=== PATIENT | male | born 1965 | race Caucasian/White ===

== ENCOUNTER 2017-01-13 09:53 | Outpatient (CLI) | payer BC ==
--- NOTE | 2017-01-13 13:20 | MRI ---
BRAIN MRI WITH AND WITHOUT CONTRAST: Date: 01/13/17 COMPARISON: 08/27/16 and prior. HISTORY: Malignant neoplasm of brain. Follow-up examination to reassess brain tumor. TECHNIQUE: Multiplanar, multisequence MR imaging of the brain is provided with and without contrast. FINDINGS: The diffusion-weighted imaging demonstrates no evidence for acute infarction. There is a stable small left parietal calvarial defect suggesting the sequelae of prior brain biopsy . The gradient echo imaging demonstrates no evidence for acute hemorrhage. There is no ventriculomeg rylee. There is a T1 hypointense and T2/FLAIR hyperintense intra-axial mass lesion on the left. This lesion involves the thalamus on the left, especially dorsally, as well as the periventricular and deep whi te matter adjacent to the mid/posterior body of the left lateral ventricle. The lesion extends infer iorly into the periventricular white matter anterior to the atrium of the lateral ventricle on the l eft. There is abnormal signal which involves the periventricular white matter medial to the left fro ntal horn of the lateral ventricle. There is increased T2 and FLAIR signal involving the periventricular white matter adjacent to the oc cipital horn and lateral to the atrium of the left lateral ventricle. The extent of signal abnormali ty associated with this intracranial intra-axial mass lesion does not appear significantly changed w hen compared to the 08/27/16 exam. The degree of mass effect with left to right midline shift at the level of the septum pellucidum posteriorly is grossly unchanged, measuring in the 5.0 mm range. The postcontrast imaging does not demonstrate significant enhancement of this lesion, making it diff icult to define which areas of signal abnormality are associated with tumor and the areas which are associated with vasogenic edema. The most conspicuous focal area of signal abnormality centered in t he region of the thalamus on the left measures approximately 3.0 x 2.9 cm in the region of the dorsa l thalamus, unchanged when compared to the 08/27/16 exam. In addition, when measuring the area of fo candis signal abnormality adjacent to the septum pellucidum on the left, this region of signal abnormal ity measures up to 2.7 cm in greatest transverse dimension, unchanged since 08/27/16. When compared to the 04/29/16 exam, there has been no significant change either. The imaged paranasal sinuses/mastoid air cells are well aerated. Arterial flow-voids at the axial le anjelica of the skull base appear unremarkable on the T2-weighted imaging. 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 POS: [facility]
== END 2017-01-13 09:54 | disposition home or self-care (01) ==
LOC: TBSIIMAG 09:53
PROVIDERS: ATTEND Neurological Surgery
DX: C71.9 Malignant neoplasm of brain, unspecified (principal)
CPT/HCPCS: 70553

== ENCOUNTER 2017-04-20 18:10 | Inpatient (IN) | payer BC ==
[2017-04-20 20:16] LABS: Bilirubin Small (Negative); Blood, Urine Trace (Negative); Clarity Hazy (Clear); Glucose, Urine (Dipstick) Negative (Negative); Leukocyte Negative (Negative); Nitrite Negative (Negative); Protein, Urine (Dipstick) 100 mg/dL (Neg-Trace); Specific Gravity, Urine 1.025 (1.005-1.030); Urobilinogen 0.2 mg/dL (0.2-1.0)
[2017-04-20 20:18] LABS: Bacteria/HPF 3+ HPF (None Seen); RBC/HPF 0-3 HPF (0-3); Squamous Epithelial 0-3 HPF (0-3); WBC/HPF 0-3 HPF (0-3)
[2017-04-20 20:19] LABS: Hyaline Casts/LPF 0-3 HYALINE CAST LPF (0-3 Hyaline)
[2017-04-20 20:25] LABS: Phencyclidine (PCP) Not Detected (NotDetected); THC/Cannabinoid Screen Not Detected (NotDetected)
[2017-04-20 20:26] LABS: Amphetamine Detected (NotDetected); Barbiturates Screen Not Detected (NotDetected); Benzodiazepine Screen Not Detected (NotDetected); Cocaine Metabolite Screen Not Detected (NotDetected); Medtox Control Line Valid? VALID (VALID); Methadone Not Detected (NotDetected); Methamphetamine Not Detected (NotDetected); Opiate Screen Not Detected (NotDetected); Oxycodone Screen Not Detected (NotDetected); Tricyclic Screen Not Detected (NotDetected)
[2017-04-20 20:34] LABS: #Basophils 0.2 thou/uL (0.0-0.2); #Lymphocytes 1.5 thou/uL (1.20-3.40); #Monocytes 0.8 thou/uL (0.11-0.59); #Neutrophils 11.2 thou/uL (1.40-6.50); %Basophils 1.2 % (0.0-1.0); %Eosinophils 0.1 % (0.0-10.0); %Lymphocytes 11.1 % (21.0-51.0); %Neutrophils 81.6 % (42.0-75.0); Hemoglobin 11.9 g/dL (14.0-18.0); Mean Corpuscular HGB CONC 35.4 g/dL (32.0-36.0); Mean Corpuscular Hemoglobin 31.9 pg (27.0-31.0); Mean Corpuscular Volume 90.1 fl (80.0-94.0); Mean Platelet Volume 6.9 fL (7.4-10.4); Platelet Count 321 thou/uL (130-400); RBC Distribution Width 11.5 % (11.5-14.5); Red Blood Cell (RBC) Count 3.74 mill/uL (4.70-6.10); White Blood Cell (WBC) Count 13.7 thou/uL (4.8-10.8)
[2017-04-20 20:39] LABS: INR-International Normal Ratio 0.9; Prothrombin Time 12.6 SEC (12.0-14.7)
[2017-04-20 20:50] LABS: ALT (SGPT) 27 U/L (8-55); AST (SGOT) 23 U/L (5-34); Acetaminophen Less than 6.0 mcg/mL (10.0-30.0); Albumin 4.5 g/dL (3.5-5.0); Alcohol Less than 10 mg/dL (Less than 10); Alkaline Phosphatase 134 U/L (40-150); Anion Gap 18 mmol/L (10-20); BUN (Urea Nitrogen) 34 mg/dL (8.4-25.7); Bilirubin, Total 0.3 mg/dL (0.2-1.2); CK (CPK) 287 U/L (30-200); CKMB 4.8 ng/mL (0-6.6); Calc. Creatinine Clearance 0 mL/min (70-130); Calcium 10.1 mg/dL (7.8-10.44); Carbon Dioxide 24 mmol/L (22-29); Chloride 100 mmol/L (98-107); Estimated GFR-MDRD 25; Globulin 3.3 g/dL (2.4-3.5); Glucose 116 mg/dL (70-105); Potassium 4.2 mmol/L (3.5-5.1); Protein, Total 7.8 g/dL (6.0-8.3); Salicylate Less than 8.0 mg/dL (15.0-30.0); Sodium 138 mmol/L (136-145); Troponin I 0.013 ng/mL (< 0.028)
--- NOTE | 2017-04-20 20:51 | CT ---
CT OF BRAIN PERFORMED WITHOUT CONTRAST ENHANCEMENT: History: Altered mental status. History of brain tumor. Comparison: 04-08-15 CT examination, 01-13-17 MRI study. FINDINGS: There is evidence for increase in size of the brain mass as compared to the prior examination. There is increased white matter edema change in the left frontal lobe region and there is marked effacement of the left frontal horn with mixed low attenuation change extending across midline in the region of the frontal horns and anterior aspect of the corpus callosum region suggesting tumor extension. Ther e is fairly minimal shift of midline structures to the right. There is no hemorrhage. IMPRESSION: Findings compatible with enlarging intraxial mass, which had its epicenter before in the left thalamu s region but now shows findings that would suggest that it is crossing midline anteriorly and there i s increasing edema change within the white matter in the left frontal lobe. POS: [facility]
[2017-04-20] MEDS ORDERED: cefTRIAXone\\ROCEPHIN 1 GM VIAL ONE (21:41)
[2017-04-20] MEDS ORDERED: Sodium Chloride 0.9% 100 ML ONE (21:42)
[2017-04-20] MEDS ORDERED: Dexamethasone 4 MG TAB ONE (22:39)
[2017-04-21 01:32] VITALS: BMI 35.6
[2017-04-21] MEDS ORDERED: FLU VACC TS2017-18 (>65YR) 0.5 ML SYRINGE IM ONE (01:45)
[2017-04-21] MEDS ORDERED: Prevnar 13-Val Conj/PF 0.5 ML SYRINGE IM ONE (01:45)
[2017-04-21] MEDS: Dexamethasone 4 mg/ml Vial SLOW IVP SCH ×4 (01:51→18:10)
[2017-04-21] MEDS ORDERED: Ondansetron HCl/PF 4 MG/2 ML Vial IVP PRN (03:07)
[2017-04-21] MEDS ORDERED: Ondansetron ODT 4 MG TAB PO PRN (03:07)
[2017-04-21] MEDS: Sodium Chloride 0.9% 1,000 ML IV SCH ×2 (04:00→12:13)
--- NOTE | 2017-04-21 04:37 | HP ---
DATE OF ADMISSION: 04/21/2017 CHIEF COMPLAINT: Suicidal ingestion of SSRIs. HISTORY OF PRESENT ILLNESS: This is a 51-year-old young white male who was diagnosed enlarging brain mass by Neurology, has been treated with radiation and chemotherapy. Patient was found to be having persistent aphasia and dysphagia as told by the . The patient was advised to go to the ER. Dur ing this period, patient took unknown quantity of sertraline, Adderall, lisinopril, and couple of oth er medications. As patient immediately vomited these medications soon as he took it, as he was very confused, so he was taken to the [place] ER at the [facility], where the patient had a chest x-ray and thorough evaluation with lab work was done, which was unremarkable at that time and the pat ient was closely monitored. Neurosurgery was consulted because of the enlarging brain mass who sugge sted to start the patient on Decadron and admitted to the [facility]. Patient was seen in [facility], he was completely confused. He is disoriented to time, place, and person. He denies having any chest pain, no nausea, no vomiting, no diarrhea, no constipation, but patient is completely unaw are of the surroundings and he denies even ingesting any pills. PAST MEDICAL HISTORY: Unable to obtain. PAST SURGICAL HISTORY: Unable to obtain. SOCIAL HISTORY: Unable to obtain and no family members available. REVIEW OF SYSTEMS: Unable to obtain, as the patient is completely disoriented and no other family me mbers available at this time. HOME MEDICATIONS: Chlorthalidone 25 mg p.o. daily, levothyroxine 150 mg daily, lisinopril/hydrochlor othiazide p.o. daily, oxcarbazepine 300 mg p.o. b.i.d., sertraline 100 mg p.o. daily. ALLERGIES: FENTANYL. PHYSICAL EXAMINATION: VITAL SIGNS: Blood pressures are 124/82, heart rate is 97, respiration rate is 82, saturation is 88% . GENERAL: The patient is moderately built and moderately nourished, does not appear to be in acute di stress at this time. He is completely disoriented. HEENT: Atraumatic, normocephalic. PERRLA. Extraocular muscles were intact. CARDIOVASCULAR: S1, S2 normal. No murmurs, rubs, or gallops. LUNGS: Bilateral air entry was equal. No wheezing, no crackles. ABDOMEN: Soft, nontender. No guarding, no rebound tenderness. Bowel sounds normal. MUSCULOSKELETAL: No calf tenderness. No pedal edema. EXTREMITIES: No joint redness, no joint swelling. SKIN: No cyanosis or erythema, no rash, no pallor. NEUROLOGIC: Cranial nerve examination II-XII intact. No focal deficits were noted. LABORATORY DATA: WBC 13.7, hemoglobin is 11.1, hematocrit is 33.7, platelets are 321. Sodium is 138 , potassium 4.2, chloride is 100, bicarbonate 24, BUN is 34, creatinine is 2.69, blood sugar is 116. ASSESSMENT AND PLAN: 1. Acute encephalopathy secondary to brain mass. 2. Hypertension. 3. Severe depression. 4. Moderate dehydration. 5. Leukocytosis. PLAN: 1. Plan is to closely monitor this patient in the IMCU, because of the unknown side effects of the m edications. He took sertraline on unknown quantity of 100 mg tablets, but the history is patient has vomited out. So, we will closely monitor for any evidence of serotonin syndrome. So far the blood pressures remained stable and patient has no rigidity symptoms. 2. Neurosurgery has been consulted who planned to do an MRI of the brain with and without contrast a nd now suggested to continue on Decadron 4 mg q.6 hours. If the patient has risk of aspiration at t his time, patient has elevated white count, we will do a chest x-ray to look for any evidence of aspi ration pneumonia. We will keep the patient n.p.o. and do speech evaluation. 3. Patient has history of hypertension. We will hold off on the blood pressure medications and giancarlo t with p.r.n. hydralazine 10 mg q.6 hours. 4. As the patient has severe depression and is on sertraline, he is very unsafe, need possible psych evaluation following this discharge. 5. DVT prophylaxis. He is on Lovenox. I spent 70 minutes of this patient.
[2017-04-21 04:56] LABS: Band 5 % (5-11); Eosinophils 1 % (0-10); Hemoglobin 11.1 g/dL (14.0-18.0); Lymphocytes 10 % (21-51); MDiff Complete? YES; Mean Corpuscular HGB CONC 33.7 g/dL (32.0-36.0); Mean Corpuscular Hemoglobin 31.4 pg (27.0-31.0); Mean Corpuscular Volume 93.3 fl (80.0-94.0); Mean Platelet Volume 7.5 fL (7.4-10.4); Monocytes 8 % (0-10); Neutrophil 76 % (42-75); PLT Morphology Comment Appears Adequate; Platelet Count 311 thou/uL (130-400); RBC Distribution Width 12.1 % (11.5-14.5); Red Blood Cell (RBC) Count 3.53 mill/uL (4.70-6.10); White Blood Cell (WBC) Count 11.3 thou/uL (4.8-10.8)
[2017-04-21 05:06] LABS: ALT (SGPT) 23 U/L (8-55); AST (SGOT) 21 U/L (5-34); Albumin 4.1 g/dL (3.5-5.0); Alkaline Phosphatase 116 U/L (40-150); Anion Gap 13 mmol/L (10-20); BUN (Urea Nitrogen) 35 mg/dL (8.4-25.7); Bilirubin, Total 0.3 mg/dL (0.2-1.2); Calc. Creatinine Clearance 62 mL/min (70-130); Calcium 9.6 mg/dL (7.8-10.44); Carbon Dioxide 25 mmol/L (22-29); Chloride 101 mmol/L (98-107); Estimated GFR-MDRD 29; Globulin 2.8 g/dL (2.4-3.5); Glucose 99 mg/dL (70-105); Potassium 3.7 mmol/L (3.5-5.1); Protein, Total 6.9 g/dL (6.0-8.3); Sodium 135 mmol/L (136-145)
--- NOTE | 2017-04-21 05:57 | CON ---
DATE OF CONSULTATION: 04/20/2017 This is Angie Sorto PA-C, with Neurosurgery Service. ATTENDING PHYSICIAN: Dr. Mervin Cash. 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 He also appears to have overdosed on several of his regular medications including several blood pressure medications doxycycline and Vyvanse and Zoloft. Family and patient are unsure of how many medications that he took. He reports he is unsure why he took these medications when speaking with me, but told the ER physician here in the department that he was attempting to hurt himself after questioning several times. Regarding his past medical history of glioma, this has been found to be unresectable in nature involving the deep left hemisphere of thalamus. He has been followed with the regular imaging by Dr. Bailon and underwent sterotactic radiosurgery in 2013. His last visit with Dr. Bailon is slightly a smaller tumor and patient was doing well at that time. Today, CT head shows possible mild enlargement of the glioma when compared to MRI from 2017. There is minimal midline shift and no other significant changes. I am seeing the patient at bedside. He is A&O x4. Pupils are equal and reactive to light. He has normal cranial nerve exam. No focal neurologic deficits are appreciated on my exam, he has normal finger to nose. PAST MEDICAL HISTORY: Hypertension, hyperlipidemia, and depression. PAST SURGICAL HISTORY: Hernia repair, lumbar surgery, stereotactic radiosurgery. FAMILY HISTORY: Noncontributory. SOCIAL HISTORY: Patient does not smoke, drink, or use any drugs. ALLERGIES: Patient has no known drug allergies. PHYSICAL EXAMINATION: VITAL SIGNS: BP is 101/62, pulse is 70, respirations rate is 18, temperature is 98.3. The patient is 95% on room air. CONSTITUTIONAL: He is in no acute distress. HEENT: Normocephalic, atraumatic. Eyes: PERRLA. Extraocular movements intact. ENT: Oral mucosa is pink intact and moist. He has normal voice. NECK: Nontender to palpation. Free active range of motion, no meningismus or nuchal rigidity. CARDIOVASCULAR: Regular rate and rhythm. LUNGS: Patient is breathing comfortably, has symmetric chest expansion. No evidence of dyspnea. MUSCULOSKELETAL: He has good muscle tone in bilateral upper and lower extremities, no focal motor weakness is appreciated. NEURO: He is A&O x4. There is no focal neurologic deficits. He has normal cerebellar exam. Normal cranial nerve exam. PSYCHIATRIC: The patient is answering questions appropriately, although he does seem slightly evasive when discussing his recent medication overdose. He denies current SI or HI. ASSESSMENT AND PLAN: The patient is a 51-year-old male known to the Neurosurgery Service for unresectable glioma, which appears to be slightly enlarged when compared to his December MRI. He reports he has increased difficulty with word finding, which has been progressing over the last few weeks. There is also concern for overdose, which may have been intentional. He will be admitted to the medicine service regarding this issue. I will plan to repeat his MRI with and without contrast for further evaluation of this glioma. He will also be started on Decadron and an H2 molina. I will notify Dr. Bailon and MARGUERITE Greenwood regarding the patient's current status and admission to the hospital. Please reach out to Neurosurgery Service for additional questions or concerns. YENI
--- NOTE | 2017-04-21 07:53 | PRG ---
DATE OF SERVICE: 04/21/2017 SUBJECTIVE: I personally interviewed and examined Mr. Magana and agree with documentation of Nirav Glez PA-C, dated 04/20/2017. Briefly, Anthony Magana has been a patient in our neurosurgical clinic since 2013. 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 He has had adjuvant therapy. We followed him over time with serial imaging. 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 Most recently, I saw Mr. Magana in our neurosurgery clinic in December after MRI scan. He is due for another scan soon. With this history that he was found down at home with a 70 pill bottles he had a vomiting episode with stomach contents included multiple pills. He was brought to our emergency dep artment and overnight he has been watched in the ICU. He has not had any seizure activity and has no new neurological deficits overnight. On seeing him this morning, there is a bit of expressive dysphasia. He does get words out and 1 to 2 words answers or short phrases come out without difficulty. Compared to his baseline, he has overly upbeat affect. His affect is usually low and dominated by intellect rather than emotion. His behav ior now is a bit different when I compared to previous visits in our clinic. I do not find any cranial nerve deficit. I do not find any lateralizing motor or sensory deficits. We will await the MRI results from today. If there is new enhancement and the tumor has changed grad es, then he may be a candidate for a trial of therapy. If there is no new enhancement and the tumor is stable, this attempt to injure himself may prompt re-thinking of his management plan going forward . He may elect to be less or more aggressive with the tumor, but help in this management from Psychi mima would be beneficial. I will follow up with him and his after the MRI scan is done.
[2017-04-21] MEDS ORDERED: Enoxaparin Sodium 40 MG/0.4 ML SYRINGE SC SCH (09:00)
[2017-04-21] MEDS: Famotidine/PF 20 mg/2ml Vial SLOW IVP SCH (09:07)
--- NOTE | 2017-04-21 11:02 | RAD ---
PORTABLE UPRIGHT FRONTAL CHEST RADIOGRAPH: Date: 04-21-17 Comparison: None. 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 FINDINGS: Heart and mediastinal contours are grossly unremarkable. Mild interstitial prominence is noted. No fo candis consolidation. IMPRESSION: No acute findings. POS: [facility]
--- NOTE | 2017-04-21 16:04 | MRI ---
BRAIN MRI WITH AND WITHOUT CONTRAST 04/21/17 COMPARISON: 01/13/17. HISTORY: Brain tumor, status post chemotherapy and radiation. TECHNIQUE: Multiplanar and multisequence MR imaging of the brain is obtained with and without contrast. FINDINGS: The axial gradient echo imaging demonstrates no evidence for intracranial hemorrhage. The diffusion w eighted imaging demonstrates no evidence for acute infarction. There is an intra-axial lesion with a component centered within the thalamus on the left. This thalam ic lesion demonstrates heterogeneous precontrast T1 and T2 signal with posterior T2 and FLAIR hyperin tensity. There is associated mass effect with mass effect along the undersurface of the left lateral ventricle. This intraxial lesion centered within the left thalamus demonstrates minimal patchy enhanc ement along its superior margin. The thalamic lesion extends inferiorly and laterally to involve the superior aspect of the left temporal lobe medially as well as the periventricular white matter adjace nt to the atrium of the left lateral ventricle. This lesion measures approximately 4.3 cm in greatest transverse dimension measured at the axial leve l of the third ventricle, increased from 3.9 cm on the prior exam. Its superior extension posteriorly is grossly unchanged. However, there is a new large component of the lesion which extends anteriorly and superiorly, center ed superior to the body and genu of the corpus callosum. This new superior component exerts marked ma ss effect on the frontal horns of the lateral ventricles, left more so than right. This new intra-axial component is centered within the inferior and medial left frontal lobe and demon strates irregular nodular and peripheral enhancement. This new supratentorial component measures 4.7 x 5.4 x 4.9 cm. It likely involves the anterior body and the genu of the corpus callosum. There is as sociated midline shift from left to right at the level of the interhemispheric fissure, measuring skyler roximately 1.1 cm. The imaged paranasal sinuses/mastoid air cells are well aerated. Arterial flow voids at axial level o f skull base appear grossly unremarkable on the T2 weighted imaging. There is a calvarial defect post eriorly and superiorly within the medial left parietal lobe, consistent with a prior biopsy tract. There is prominent vasogenic edema within the subcortical deep and periventricular white matter of th e left frontal lobe, new, associated with the large new intra-axial tumor. IMPRESSION: Multifocal intra-axial lesion as detailed above. The component centered within the thalamus on the le ft with posterior and inferior extension into the left temporal lobe and periventricular white matter , progressed slightly since the prior exam. However, there is a large new component centered within t he posterior medial left frontal lobe, with marked surrounding vasogenic edema and mass effect, likel y involving the genu in the body of the corpus callosum, evidence of marked interval progression. Fin dings are highly concerning for GBM. This was discussed with Nas Butcher, neurosurgical PA, at the time of interpretation. POS: [facility]
--- NOTE | 2017-04-21 17:48 | PDOC.EVN ---
Event Note - Event Note Event Note: Pt seen and examined at bedside. Care discussed w in room. Pt awake and alert,denies any discomfort or pain Chart reviewed. Cont care per NS.MRI shows progression in brain mass w edema.will consult Palliative team for gaols of care. hemodynamically stable. cont IV keppra for Seizure prophylaxis. am labs.
[2017-04-21] MEDS ORDERED: Ziprasidone 20 MG VIAL IM PRN (17:55)
[2017-04-21] MEDS ORDERED: Sterile Water 10 ML ONE (18:46)
--- NOTE | 2017-04-22 00:11 | PRG ---
DATE OF SERVICE: 04/21/2017 Mr. Magana is a 51-year-old male who was admitted on 04/20/[address] status [address] overdose[address] of th e brain was completed, that showed an enlarging left frontal brain mass. We saw him in clinic in 201 4. He had dominant thalamic and midbrain glioma biopsied at that time showing grade II astrocytoma. We followed him since that time with serial imaging. On exam tonight, he was able to tell me his na me and who the president is. He does not know where he is at this time. He has good strength in his upper and lower extremities bilaterally. His cranial nerves are intact and he follows my commands. The patient is GCS 14. He has a little bit of expressive dysphasia when asked particular questions. Otherwise, psychiatric behavior on exam seems normal. I do not find any lateralizing motor or sens ory deficits. He had an MRI scan today and we will review the results with him tomorrow morning. He has been moved currently tonight from the ICU to the surgical non-ortho floor. If there are any fur ther questions, please feel free to contact Neurosurgery.
[2017-04-22] MEDS: Dexamethasone 4 mg/ml Vial SLOW IVP SCH ×4 (00:30→17:12)
[2017-04-22 06:45] LABS: #Monocytes 0.4 thou/uL (0.11-0.59); #Neutrophils 8.6 thou/uL (1.40-6.50); %Basophils 0.2 % (0.0-1.0); %Eosinophils 0.3 % (0.0-10.0); %Lymphocytes 9.8 % (21.0-51.0); %Monocytes 4.3 % (0.0-10.0); %Neutrophils 85.5 % (42.0-75.0); Hemoglobin 11.5 g/dL (14.0-18.0); Mean Corpuscular HGB CONC 33.3 g/dL (32.0-36.0); Mean Corpuscular Hemoglobin 31.4 pg (27.0-31.0); Mean Corpuscular Volume 94.2 fl (80.0-94.0); Mean Platelet Volume 7.3 fL (7.4-10.4); Platelet Count 338 thou/uL (130-400); RBC Distribution Width 12.1 % (11.5-14.5); Red Blood Cell (RBC) Count 3.66 mill/uL (4.70-6.10); White Blood Cell (WBC) Count 10.1 thou/uL (4.8-10.8)
[2017-04-22 06:59] LABS: Anion Gap 13 mmol/L (10-20); BUN (Urea Nitrogen) 30 mg/dL (8.4-25.7); Calc. Creatinine Clearance 87 mL/min (70-130); Calcium 10.1 mg/dL (7.8-10.44); Carbon Dioxide 26 mmol/L (22-29); Chloride 103 mmol/L (98-107); Estimated GFR-MDRD 43; Glucose 102 mg/dL (70-105); Potassium 4.5 mmol/L (3.5-5.1); Sodium 137 mmol/L (136-145)
[2017-04-22] MEDS ORDERED: Eucerin (Mineral Oil/Petrolatum,White) 30 gm Jar TOP PRN (07:32)
[2017-04-22] MEDS ORDERED: Fleet Enema 133 ML BOT PR PRN (07:32)
[2017-04-22] MEDS ORDERED: Sodium Chloride 0.65% Nasal 44 ML BOT EA NARE PRN (07:32)
[2017-04-22] MEDS ORDERED: hydrALAZINE 20 MG/ML VIAL SLOW IVP PRN (07:32)
[2017-04-22] MEDS ORDERED: Artificial Tears 18 DROP/0.9 ML EA EYE PRN (07:32)
[2017-04-22] MEDS ORDERED: Chloraseptic Spray 180 ml Bottle PO PRN (07:32)
[2017-04-22] MEDS ORDERED: Bisacodyl 10 MG SUPP PR PRN (07:32)
[2017-04-22] MEDS ORDERED: Acetaminophen 650 MG Suppository PR PRN (07:32)
--- NOTE | 2017-04-22 08:20 | PRG ---
DATE OF SERVICE: 04/22/2017 NEUROSURGERY PROGRESS NOTE I met with Mr. Anthony Magana and his yesterday evening and this morning. I spent about an hour speaking yesterday and about 30 minutes this morning. I talked about end of life decisions. Mr. Cruz was clear to me this morning that he does not want treatment for his tumor. He does not w ant surgery. He does not want chemotherapy. He does not want to consider any more radiation. He do es not want steroid medication for swelling. Mr. Magana wants to be in control of this and the life decisions. During this window of lucidity where language is only moderately disturbed. He has expr essed all of this to me and his was there for verification. We have made Mr. Magana in DNR and DNI status. We are looking into inpatient hospice care. Given the advanced growth of the tumor over the last two and a half months since his prior MRI scan, I think the velocity of growth is extraordinary. I do not think he will survive more than a few week s, perhaps 2 months at the most with his current growth rate of the tumor as long as it does not flow . 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 We will try to address all these issues and get community resources to help the family.
[2017-04-22] MEDS: Famotidine/PF 20 mg/2ml Vial SLOW IVP SCH (09:38)
--- NOTE | 2017-04-22 11:04 | PDOC.PN ---
- Subjective Encounter Start Date: 04/22/17 Encounter Start Time: 09:40 -: old records requested/rev Patient seen and examined. No new complaints. No overnight events - Objective Resuscitation Status: Resuscitation Status DNR:Do Not Resuscitate MAR Reviewed: Yes Vital Signs & Weight: Vital Signs (12 hours) Temp Pulse Resp BP Pulse Ox 04/22/17 07:30 98.0 F 65 16 110/73 94 L 04/22/17 04:00 97.5 F L 66 18 109/74 94 L 04/22/17 00:15 97.3 F L 57 L 18 122/75 98 04/22/17 00:00 97.8 F Weight Admit Weight 262 lb 9.129 oz Weight 262 lb 9.129 oz Most Recent Monitor Data Heart Rate from ECG 64 NIBP 117/74 NIBP BP-Mean 85 Respiration from ECG 12 SpO2 93 I&O: 04/21/17 04/22/17 04/23/17 06:59 06:59 06:59 Intake Total 100 1907 Output Total 500 1200 Balance -400 707 Result Diagrams: 04/22/17 05:51 04/22/17 05:51 Phys Exam - Physical Examination Constitutional: NAD HEENT: PERRLA, moist MMs, sclera anicteric Neck: no JVD, supple Respiratory: no wheezing, no rales, no rhonchi Cardiovascular: RRR, no significant murmur, no rub Gastrointestinal: soft, non-tender, no distention, positive bowel sounds Musculoskeletal: no edema, pulses present Neurological: non-focal, normal sensation, moves all 4 limbs Psychiatric: normal affect, A&O x 3 Skin: no rash, normal turgor Dx/Plan (1) Acute worsening of stage 3 chronic kidney disease Code(s): N18.3 - CHRONIC KIDNEY DISEASE, STAGE 3 (MODERATE) Status: Acute (2) Drug overdose, multiple drugs Code(s): T50.901A - POISONING BY UNSP DRUG/MEDS/BIOL SUBST, ACCIDENTAL, INIT Status: Acute (3) Encephalopathy acute Code(s): G93.40 - ENCEPHALOPATHY, UNSPECIFIED Status: Acute (4) Left frontal lobe mass Code(s): G93.9 - DISORDER OF BRAIN, UNSPECIFIED Status: Acute (5) Anemia, normocytic normochromic Code(s): D64.9 - ANEMIA, UNSPECIFIED Status: Chronic (6) Anxiety and depression Code(s): F41.8 - OTHER SPECIFIED ANXIETY DISORDERS Status: Chronic (7) Astrocytoma brain tumor Code(s): C71.9 - MALIGNANT NEOPLASM OF BRAIN, UNSPECIFIED Status: Chronic (8) Obesity (BMI 30-39.9) Code(s): E66.9 - OBESITY, UNSPECIFIED Status: Chronic - Plan cont current plan of care, plan discussed w/ family, director social service * pt and decided for comfort care * they need inpt hospice facility for symptom control * pt can not be managed at home * medication reviewed as below * symptomatic treatment * out of hospital DNR paper work done * prognosis is very poor. Review of Systems - Review of Systems Constitutional: negative: fever, chills, sweats, weakness, malaise, other Eyes: negative: Pain, Vision Change, Conjunctivae Inflammation, Eyelid Inflammation, Redness, Other ENT: negative: Ear Pain, Ear Discharge, Nose Pain, Nose Discharge, Nose Congestion, Mouth Pain, Mouth Swelling, Throat Pain, Throat Swelling, Other Respiratory: negative: Cough, Dry, Shortness of Breath, Hemoptysis, SOB with Excertion, Pleuritic Pain, Sputum, Wheezing Cardiovascular: negative: chest pain, palpitations, orthopnea, paroxysmal nocturnal dyspnea, edema, light headedness, other Gastrointestinal: negative: Nausea, Vomiting, Abdominal Pain, Diarrhea, Constipation, Melena, Hematochezia, Other Genitourinary: negative: Dysuria, Frequency, Incontinence, Hematuria, Retention , Other Musculoskeletal: negative: Neck Pain, Shoulder Pain, Arm Pain, Back Pain, Hand Pain, Leg Pain, Foot Pain, Other - Medications/Allergies Allergies/Adverse Reactions: Allergies Allergy/AdvReac Type Severity Reaction Status Date / Time fentanyl Allergy Intermediate LETHERGY Verified 04/21/17 01:23 Medications: Current Medications Acetaminophen (Tylenol) 650 mg [place] Q4H PRN PRN Reason: Headache/Fever or Mild Pain Artificial Tears (Tears Naturale) 0 drop EA EYE PRN PRN PRN Reason: Dry Eyes Bisacodyl (Dulcolax) 10 mg [place] DAILYPRN PRN PRN Reason: Constipation Dexamethasone (Decadron) 4 mg SLOW IVP Q6HR DANETTE Last Admin: 04/22/17 05:20 Dose: 4 mg Famotidine (Pepcid) 20 mg SLOW IVP 0900 [facility] Last Admin: 04/22/17 09:38 Dose: 20 mg Hydralazine HCl (Apresoline) 10 mg SLOW IVP Q4H PRN PRN Reason: Systolic BP > 180 Levetiracetam 500 mg/ Device 100 mls @ 200 mls/hr IVPB BID DANETTE Last Admin: 04/22/17 09:38 Dose: 100 mls Mineral Oil/White Petrolatum (Eucerin Cream) 0 gm TOP BIDPRN PRN PRN Reason: Dry Skin Ondansetron HCl (Zofran Odt) 4 mg PO Q6H PRN PRN Reason: Nausea/Vomiting Ondansetron HCl (Zofran) 4 mg IVP Q6H PRN PRN Reason: Nausea/Vomiting Phenol (Chloraseptic [place] 180 Ml Bot) 0 ml PO PRN PRN PRN Reason: Sore Throat Sodium Biphosphate/Sodium Phosphate (Fleet Enema) 133 ml SD ONE PRN PRN Reason: Constipation Stop: 04/22/17 12:00 Sodium Chloride ([place] Nasal [place] 0.65%) 0 ml EA NARE QIDPRN PRN PRN Reason: Nasal Congestion Ziprasidone (Geodon) 10 mg IM Q4H PRN PRN Reason: Agitation Last Admin: 04/21/17 18:16 Dose: 10 mg
--- NOTE | 2017-04-22 11:43 | PRG ---
DATE OF SERVICE: 04/22/2017 SUBJECTIVE: This morning, he is much more awake and responsive. OBJECTIVE: VITAL SIGNS: Blood pressure 110/73, sats are 99% on room air, temperature 98, pulse 65, respiratory rate 16. CHEST: Decreased breath sounds, no wheezing. CARDIAC: Normal S1, S2. No gallops. ABDOMEN: Soft, no masses. LABORATORY DATA: Electrolytes are normal. Creatinine 1.69. His white count is 10, H&H is 11 and 34 . His urine is growing Enterococcus species. IMPRESSION: 1. Metabolic encephalopathy, improved. 2. Enlarging astrocytoma. 3. Renal failure. PLAN: He is out of the ICU. He is on Keppra and steroids. His says hospice is going to see t he patient. Pulmonary and Critical Care will follow at a distance. Please call if needed.
[2017-04-23 06:12] LABS: Anion Gap 14 mmol/L (10-20); BUN (Urea Nitrogen) 40 mg/dL (8.4-25.7); Calc. Creatinine Clearance 91 mL/min (70-130); Calcium 9.8 mg/dL (7.8-10.44); Carbon Dioxide 26 mmol/L (22-29); Chloride 103 mmol/L (98-107); Estimated GFR-MDRD 45; Glucose 94 mg/dL (70-105); Potassium 4.1 mmol/L (3.5-5.1); Sodium 139 mmol/L (136-145)
--- NOTE | 2017-04-23 06:52 | PRG ---
DATE OF SERVICE: 04/23/2017 Mr. Magana is a 51-year-old male who I saw in his room this morning. He did well overnight. His vi caroline signs have been stable. Case management visited with him yesterday and sent a referral letter to hospice to all [facility]. His and himself were agreeable. He is alert and oriented x4 this morning. He was able to answer questions appropriately. There is a sitter in t he room with him at this time. He can be discharged to hospice whenever those arrangements have been finalized. If there are any further questions, please feel free to contact Neurosurgery.
--- NOTE | 2017-04-23 07:32 | PRG ---
DATE OF SERVICE: 04/23/2017 I saw Mr. Magana this morning. His is not in the room, but the sitter is watching him closely. Yesterday I spoke with the inpatient hospice facility and they have not finalized the answer yet. I did tell him I expect neurological deterioration to the point of complete dependence for care in th e coming weeks and without treatment this tumor is likely to become life threatening shortly. Mr. Magana does not want treatment for the tumor. He reiterated to me that he prefers not to have s urgery, chemotherapy, radiation or steroids. I think Keppra will be necessary to prevent seizures. I like the idea of Geodon to keep him safe, other medication may not be necessary. I will follow up with the later today. She is getting daughters to school this morning.
[2017-04-23] MEDS: Famotidine/PF 20 mg/2ml Vial SLOW IVP SCH (09:33)
--- NOTE | 2017-04-23 11:17 | PDOC.PN ---
- Subjective Encounter Start Date: 04/23/17 Encounter Start Time: 10:10 -: old records requested/rev Patient seen and examined. No new complaints. No overnight events - Objective Resuscitation Status: Resuscitation Status DNR:Do Not Resuscitate MAR Reviewed: Yes Vital Signs & Weight: Vital Signs (12 hours) Temp Pulse Resp BP Pulse Ox 04/23/17 08:48 98.2 F 59 L 14 117/81 96 04/23/17 04:00 98.2 F 60 16 101/65 95 04/23/17 00:02 98.1 F 62 18 118/74 95 Weight Admit Weight 262 lb 9.129 oz Weight 262 lb 9.129 oz Most Recent Monitor Data Heart Rate from ECG 64 NIBP 117/74 NIBP BP-Mean 85 Respiration from ECG 12 SpO2 93 I&O: 04/22/17 04/23/17 04/24/17 06:59 06:59 06:59 Intake Total 1907 2270 Output Total 1200 Balance 707 2270 Result Diagrams: 04/22/17 05:51 04/23/17 05:27 Phys Exam - Physical Examination Constitutional: NAD HEENT: PERRLA, moist MMs, sclera anicteric Neck: no JVD, supple Respiratory: no wheezing, no rales, no rhonchi Cardiovascular: RRR, no significant murmur, no rub Gastrointestinal: soft, non-tender, no distention, positive bowel sounds Musculoskeletal: no edema, pulses present Neurological: moves all 4 limbs Lymphatic: no nodes Psychiatric: normal affect Skin: no rash, normal turgor Dx/Plan (1) Acute worsening of stage 3 chronic kidney disease Code(s): N18.3 - CHRONIC KIDNEY DISEASE, STAGE 3 (MODERATE) Status: Acute (2) Drug overdose, multiple drugs Code(s): T50.901A - [facility]/BIOL SUBST, ACCIDENTAL, INIT Status: Acute (3) Encephalopathy acute Code(s): G93.40 - ENCEPHALOPATHY, UNSPECIFIED Status: Acute (4) Left frontal lobe mass Code(s): G93.9 - DISORDER OF BRAIN, UNSPECIFIED Status: Acute (5) Anemia, normocytic normochromic Code(s): D64.9 - ANEMIA, UNSPECIFIED Status: Chronic (6) Anxiety and depression Code(s): F41.8 - OTHER SPECIFIED ANXIETY DISORDERS Status: Chronic (7) Astrocytoma brain tumor Code(s): C71.9 - MALIGNANT NEOPLASM OF BRAIN, UNSPECIFIED Status: Chronic (8) Obesity (BMI 30-39.9) Code(s): E66.9 - OBESITY, UNSPECIFIED Status: Chronic - Plan cont current plan of care, plan discussed w/ family, social work assistant * pt does not want any treatment * await hospice arrangement * medication reviewed as below * symptomatic treatment * discussed with . Review of Systems - Review of Systems ENT: negative: Ear Pain, Ear Discharge, Nose Pain, Nose Discharge, Nose Congestion, Mouth Pain, Mouth Swelling, Throat Pain, Throat Swelling, Other Respiratory: negative: Cough, Dry, Shortness of Breath, Hemoptysis, SOB with Excertion, Pleuritic Pain, Sputum, Wheezing Cardiovascular: negative: chest pain, palpitations, orthopnea, paroxysmal nocturnal dyspnea, edema, light headedness, other Gastrointestinal: negative: Nausea, Vomiting, Abdominal Pain, Diarrhea, Constipation, Melena, Hematochezia, Other Genitourinary: negative: Dysuria, Frequency, Incontinence, Hematuria, Retention , Other Musculoskeletal: negative: Neck Pain, Shoulder Pain, Arm Pain, Back Pain, Hand Pain, Leg Pain, Foot Pain, Other Skin: negative: Rash, Lesions, Nathanael, Bruising, Other - Medications/Allergies Allergies/Adverse Reactions: Allergies Allergy/AdvReac Type Severity Reaction Status Date / Time fentanyl Allergy Intermediate LETHERGY Verified 04/21/17 01:23 Medications: Current Medications Acetaminophen (Tylenol) 650 mg [place] Q4H PRN PRN Reason: Headache/Fever or Mild Pain Artificial Tears (Tears Naturale) 0 drop EA EYE PRN PRN PRN Reason: Dry Eyes Bisacodyl (Dulcolax) 10 mg [place] DAILYPRN PRN PRN Reason: Constipation Famotidine (Pepcid) 20 mg SLOW IVP 0900 [facility] Last Admin: 04/23/17 09:33 Dose: 20 mg Hydralazine HCl (Apresoline) 10 mg SLOW IVP Q4H PRN PRN Reason: Systolic BP > 180 Levetiracetam 500 mg/ Device 100 mls @ 200 mls/hr IVPB BID [facility] Last Admin: 04/23/17 09:33 Dose: 100 mls Mineral Oil/White Petrolatum (Eucerin Cream) 0 gm TOP BIDPRN PRN PRN Reason: Dry Skin Ondansetron HCl (Zofran Odt) 4 mg PO Q6H PRN PRN Reason: Nausea/Vomiting Ondansetron HCl (Zofran) 4 mg IVP Q6H PRN PRN Reason: Nausea/Vomiting Phenol (Chloraseptic [place] 180 Ml Bot) 0 ml PO PRN PRN PRN Reason: Sore Throat Sodium Chloride ([place] Nasal [place] 0.65%) 0 ml EA NARE QIDPRN PRN PRN Reason: Nasal Congestion Ziprasidone (Geodon) 10 mg IM Q4H PRN PRN Reason: Agitation Last Admin: 04/21/17 18:16 Dose: 10 mg
[2017-04-24 06:09] LABS: Anion Gap 13 mmol/L (10-20); BUN (Urea Nitrogen) 36 mg/dL (8.4-25.7); Calc. Creatinine Clearance 99 mL/min (70-130); Calcium 9.5 mg/dL (7.8-10.44); Carbon Dioxide 23 mmol/L (22-29); Chloride 103 mmol/L (98-107); Estimated GFR-MDRD 50; Glucose 94 mg/dL (70-105); Potassium 4.4 mmol/L (3.5-5.1); Sodium 135 mmol/L (136-145)
--- NOTE | 2017-04-24 06:59 | PRG ---
DATE OF SERVICE: 04/24/2017 I saw Mr. Magana in his hospital room this morning. He has a sitter in the room. He says he did no t sleep very well last night. Nursing reported some episodes which it was hard to arouse Mr. Magana , but this morning he is easily arousable and answers questions. He still has dysphagia. His answer s are 1-2 words or a short phrase and there is some echolalia. His receptive language function seems to be better; however. I do not find any new motor deficits. Mr. Magana is waiting to pass away. He has made his wishes known in the past to his and to me and reiterated them in the hospital, that he does not want treatment, radiation and chemotherapy, cyndi daisha and he had steroid medication that has been refused. In order to protect his young daughters fr om seeing their father have seizures and pass away at home, in order that the family may continue to live in the home that he designed, we are looking for other arrangements for him rather than being di scharged from the hospital to home. Inpatient hospice has been consulted. As a patient from the inpatient hospice service is that he may continue to live over the typical stay of 1-2 weeks. This is possible, but I do believe his life ex pectancy can be measured in weeks rather than a large number of months. Further, inpatient hospice f acility as less experience with people with frontal lobe dysfunction and seizures, but I think we nee d to find some facility where he can both feel a sense of dignity and that provides the family with t he peace, safety and comfort they deserve as well. I will keep him in the hospital until we do find such a place.
[2017-04-24] MEDS ORDERED: HYDROcodone/Acetaminophen 5/325 mg Tablet PO PRN (07:41)
[2017-04-24] MEDS ORDERED: Mag-Al 1200 mg/1200 mg/30 ML UDCUP PO PRN (07:41)
[2017-04-24] MEDS ORDERED: Milk Of Magnesia 30 ML UDCUP PO PRN (07:41)
[2017-04-24] MEDS ORDERED: Loratadine 10 MG TAB PO PRN (07:41)
[2017-04-24] MEDS ORDERED: Temazepam 15 MG CAP PO PRN (07:41)
[2017-04-24] MEDS ORDERED: Acetaminophen 325 MG TAB PO PRN (07:41)
[2017-04-24] MEDS ORDERED: Diabetic Tussin 200 MG/10 ML UDCUP PO PRN (07:41)
[2017-04-24] MEDS ORDERED: Loperamide HCl 2 MG CAP PO PRN (07:41)
[2017-04-24 07:59] VITALS: BP 89/54; TEMP 98.5
[2017-04-24] MEDS ORDERED: Famotidine 20 MG TAB PO SCH (09:00)
--- NOTE | 2017-04-24 10:19 | PDOC.PN ---
- Subjective Encounter Start Date: 04/24/17 Encounter Start Time: 07:40 Patient seen and examined. No new complaints. No overnight events has headache, lethargic today - Objective Resuscitation Status: Resuscitation Status DNR:Do Not Resuscitate MAR Reviewed: Yes Vital Signs & Weight: Vital Signs (12 hours) Temp Pulse Resp BP Pulse Ox 04/24/17 08:50 98.5 F 66 16 97 04/24/17 07:57 98.5 F 66 16 89/54 L 97 04/24/17 04:00 98.0 F 62 16 110/75 96 04/24/17 00:00 98.2 F 61 19 104/72 94 L Weight Admit Weight 262 lb 9.129 oz Weight 262 lb 9.129 oz Most Recent Monitor Data Heart Rate from ECG 64 NIBP 117/74 NIBP BP-Mean 85 Respiration from ECG 12 SpO2 93 I&O: 04/23/17 04/24/17 04/25/17 06:59 06:59 06:59 Intake Total 2270 1300 Balance 2270 1300 Result Diagrams: 04/22/17 05:51 04/24/17 05:28 Phys Exam - Physical Examination Constitutional: NAD HEENT: PERRLA, moist MMs, sclera anicteric Neck: no JVD, supple Respiratory: no wheezing, no rales, no rhonchi Cardiovascular: RRR, no significant murmur, no rub Gastrointestinal: soft, non-tender, no distention, positive bowel sounds Musculoskeletal: no edema, pulses present Neurological: moves all 4 limbs Lymphatic: no nodes Psychiatric: normal affect Skin: no rash, normal turgor Dx/Plan (1) Acute worsening of stage 3 chronic kidney disease Code(s): N18.3 - CHRONIC KIDNEY DISEASE, STAGE 3 (MODERATE) Status: Acute (2) Drug overdose, multiple drugs Code(s): T50.901A - POISONING BY UNSP DRUG/MEDS/BIOL SUBST, ACCIDENTAL, INIT Status: Acute (3) Encephalopathy acute Code(s): G93.40 - ENCEPHALOPATHY, UNSPECIFIED Status: Acute (4) Left frontal lobe mass Code(s): G93.9 - DISORDER OF BRAIN, UNSPECIFIED Status: Acute (5) Anemia, normocytic normochromic Code(s): D64.9 - ANEMIA, UNSPECIFIED Status: Chronic (6) Anxiety and depression Code(s): F41.8 - OTHER SPECIFIED ANXIETY DISORDERS Status: Chronic (7) Astrocytoma brain tumor Code(s): C71.9 - MALIGNANT NEOPLASM OF BRAIN, UNSPECIFIED Status: Chronic (8) Obesity (BMI 30-39.9) Code(s): E66.9 - OBESITY, UNSPECIFIED Status: Chronic - Plan cont current plan of care, plan discussed w/ family, medical social worker * medication reviewed as below * symptomatic treatment * see discharge robin. Review of Systems - Review of Systems ENT: negative: Ear Pain, Ear Discharge, Nose Pain, Nose Discharge, Nose Congestion, Mouth Pain, Mouth Swelling, Throat Pain, Throat Swelling, Other Respiratory: negative: Cough, Dry, Shortness of Breath, Hemoptysis, SOB with Excertion, Pleuritic Pain, Sputum, Wheezing Cardiovascular: negative: chest pain, palpitations, orthopnea, paroxysmal nocturnal dyspnea, edema, light headedness, other Gastrointestinal: negative: Nausea, Vomiting, Abdominal Pain, Diarrhea, Constipation, Melena, Hematochezia, Other Genitourinary: negative: Dysuria, Frequency, Incontinence, Hematuria, Retention , Other Musculoskeletal: negative: Neck Pain, Shoulder Pain, Arm Pain, Back Pain, Hand Pain, Leg Pain, Foot Pain, Other Skin: negative: Rash, Lesions, Nathanael, Bruising, Other - Medications/Allergies Allergies/Adverse Reactions: Allergies Allergy/AdvReac Type Severity Reaction Status Date / Time fentanyl Allergy Intermediate LETHERGY Verified 04/21/17 01:23 Medications: Current Medications Acetaminophen (Tylenol) 650 mg [place] Q4H PRN PRN Reason: Headache/Fever or Mild Pain Acetaminophen (Tylenol) 650 mg PO Q4H PRN PRN Reason: Headache/Fever or Mild Pain Last Admin: 04/24/17 08:11 Dose: 650 mg Hydrocodone Bitart/Acetaminophen ([place] 5/325) 1 tab PO Q4H PRN PRN Reason: Moderate Pain (4-6) Al Hydroxide/Mg Hydroxide (Maalox) 15 ml PO Q4H PRN PRN Reason: Heartburn or Indigestion Artificial Tears (Tears Naturale) 0 drop EA EYE PRN PRN PRN Reason: Dry Eyes Bisacodyl (Dulcolax) 10 mg [place] DAILYPRN PRN PRN Reason: Constipation Famotidine (Pepcid) 20 mg PO BID DANETTE Last Admin: 04/24/17 08:11 Dose: 20 mg Guaifenesin (Robitussin Sf) 200 mg PO Q4H PRN PRN Reason: Cough Hydralazine HCl (Apresoline) 10 mg SLOW IVP Q4H PRN PRN Reason: Systolic BP > 180 Levetiracetam 500 mg/ Device 100 mls @ 200 mls/hr IVPB BID [facility] Last Admin: 04/24/17 08:11 Dose: 100 mls Loperamide HCl (Imodium) 2 mg PO PRN PRN PRN Reason: Diarrhea/Loose Stools Loratadine (Claritin) 10 mg PO DAILYPRN PRN PRN Reason: Sinus Symptoms Magnesium Hydroxide (Milk Of Magnesium) 30 ml PO DAILYPRN PRN PRN Reason: Constipation Mineral Oil/White Petrolatum (Eucerin Cream) 0 gm TOP BIDPRN PRN PRN Reason: Dry Skin Ondansetron HCl (Zofran Odt) 4 mg PO Q6H PRN PRN Reason: Nausea/Vomiting Ondansetron HCl (Zofran) 4 mg IVP Q6H PRN PRN Reason: Nausea/Vomiting Phenol (Chloraseptic [place] 180 Ml Bot) 0 ml PO PRN PRN PRN Reason: Sore Throat Sodium Chloride ([place] Nasal [place] 0.65%) 0 ml EA NARE QIDPRN PRN PRN Reason: Nasal Congestion Sodium Chloride (Flush - Normal Saline) 10 ml IVF Q12HR [facility] Last Admin: 04/24/17 08:11 Dose: 10 ml Sodium Chloride (Flush - Normal Saline) 10 ml IVF PRN PRN PRN Reason: Saline Flush Temazepam (Restoril) 15 mg PO HSPRN PRN PRN Reason: Insomnia Ziprasidone (Geodon) 10 mg IM Q4H PRN PRN Reason: Agitation Last Admin: 04/21/17 18:16 Dose: 10 mg
--- NOTE | 2017-04-24 11:03 | DIS ---
DATE OF ADMISSION: 04/21/2017 DATE OF DISCHARGE: 04/24/2017 PRIMARY CARE PHYSICIAN: [facility] call admission. DISCHARGE DISPOSITION: Inpatient hospice facility. PRIMARY DISCHARGE DIAGNOSES: 1. Acute on chronic kidney failure, baseline chronic kidney disease stage 3. 2. Drug overdose multiple drugs intentional with suicidal attempt. 3. Acute encephalopathy. 4. 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 5. Urinary tract infection with Enterococcus. SECONDARY DISCHARGE DIAGNOSES: Astrocytoma of brain tumor, obesity with body mass index 35, anxiety and depression, anemia normocytic normochromic. PRIMARY PROCEDURE/OPERATION: None. RADIOLOGICAL INVESTIGATION: CT brain on admission showed enlarging intraaxial mass in left thalamus region causing midline shift, left frontal lobe mass as well with the edema. Chest x-ray showed no a cute cardiopulmonary process. MRI brain showed multifocal intraaxial lesion centered within thalamus , left temporal lobe, periventricular white matter as well as in left frontal lobe with vasogenic ananya ma and mass effect. SIGNIFICANT LABORATORY DATA: WBC 10.1, hemoglobin 11.5, platelets 338. INR 0.9. Sodium 135, potass ium 4.4, BUN 36, creatinine 1.49, glucose 94, and calcium 9.5. LFT normal. Ammonia 99. Urinalysis unremarkable. Urine drug screen positive for amphetamine. Serum drug screen negative. Urine cultur e positive for Enterococcus. CONTRAINDICATIONS: None. CODE STATUS: DNR. This was discussed during this admission. INPATIENT CONSULTANTS: Dr. Bailon was consulted while in hospital. Dr. Sheth was consulted while in hospital. TEST RESULTS PENDING ON DISCHARGE: None. ALLERGIES: FENTANYL. DISCHARGE PLAN: Post hospital, patient is discharged to inpatient hospice facility for comfort care. HOSPITAL COURSE: A 51-year-old male who was admitted by Dr. Esquivel. Please see his H&P for further d etails. This patient has underlying history of anxiety and depression and he has underlying history of astrocytoma of brain tumor. This patient was having severe anxiety and depression and he did suic idal attempt by taking multiple psychiatric medications. The patient was extremely agitated, combative and he required emergency room admission. In the emerg ency room, this patient had CT brain which showed worsening of astrocytoma lesion and new finding on left frontal lobe. MRI brain finding was suspicious for worsening and newly developing blastoma mult iforme. While in hospital, he was extremely agitated and he was requiring bedside sitter as well as intermitt ent Geodon for making him calm down. During this admission, Neurosurgery was also following. Patient and his decided that the patien josh does not want to go for any kind of surgical treatment or radiation therapy or chemotherapy for his GBM whether he selected to go with hospice care. This patient also evaluated by [facility] and they deemed inappropriate to send him home as well as this pa tient was not also a candidate for going to inpatient psych facility. The patient and wanted to go to inpatient hospice facility. We consulted [facility] and they accepted him for comfort care. This patient also had positive urine culture for urinary tract infection with Enterococcus. While in hospital, he was given steroid as well as Keppra. Upon discharge, he will continue all his previous medications. The patient is on following medications at home prior to coming to the hospital; chlorthalidone 25 mg p.o. daily, Synthroid 150 mcg p.o. daily, Prinzide 10/12.5 one tablet p.o. daily, Trileptal 300 mg p .o. b.i.d., Zoloft 100 mg p.o. daily. Upon discharge, patient will get also Keppra 500 mg p.o. b.i.d . Rest of comfort medications including Geodon p.r.n. basis will be given at hospice facility. The patient is seen and examined at bedside today. Plan of care discussed with the patient's , d iscussed with the hospice team, and discussed with the family service caseworker. In this way, total time spent p roviding discharge of this patient is more than 30 minutes.
== END 2017-04-24 11:00 | disposition hospice, inpatient (51) | DRG 917 ==
LOC: SCSER 18:10 → CCU 04-21 01:07 → SURG B 04-21 23:45
PROVIDERS: ADMIT Family Medicine; ATTEND Family Medicine
DX: T43.222A Poisoning by selective serotonin reuptake inhibitors, intentional self-harm, initial encounter (principal); G93.6 Cerebral edema; G93.41 Metabolic encephalopathy; N17.9 Acute kidney failure, unspecified; C71.7 Malignant neoplasm of brain stem; N18.3 Chronic kidney disease, stage 3 (moderate); B95.2 Enterococcus as the cause of diseases classified elsewhere; N39.0 Urinary tract infection, site not specified; T43.622A Poisoning by amphetamines, intentional self-harm, initial encounter; T46.4X2A Poisoning by angiotensin-converting-enzyme inhibitors, intentional self-harm, initial encounter; Y92.019 Unspecified place in single-family (private) house as the place of occurrence of the external cause; Z92.21 Personal history of antineoplastic chemotherapy; Z92.3 Personal history of irradiation; Z88.5 Allergy status to narcotic agent; F32.9 Major depressive disorder, single episode, unspecified; E86.0 Dehydration; Z51.5 Encounter for palliative care; Z66 Do not resuscitate; E66.9 Obesity, unspecified; Z68.35 Body mass index [BMI] 35.0-35.9, adult; F41.9 Anxiety disorder, unspecified; D64.9 Anemia, unspecified; E78.5 Hyperlipidemia, unspecified; I12.9 Hypertensive chronic kidney disease with stage 1 through stage 4 chronic kidney disease, or unspecified chronic kidney disease
CPT/HCPCS: 36415; 70450; 70553; 71045; 80048; 80053; 80306; 80307; 81003; 81015; 82140; 82550; 82553; 84443; 84484; 85007; 85025; 85027; 85610; 85730; 87077; 87086; 87186; 93005; 96365; A4216; G9162-GN-CM; G9163-GN-CJ; J0696; J1100; J1650; J1953; J3486; J7050; J8540; S0028